=== PATIENT | male | born 1985 | race African-American/Black ===

== ENCOUNTER 2019-10-24 10:00 | Emergency (ER) | payer MEDICARE ==
[~2019-10-24] VITALS: Ht 182.9 cm; Wt 75.7 kg
[2019-10-24 10:07] VITALS: BP 133/45
== END 2019-10-24 12:21 | disposition left against medical advice (07) ==
LOC: ER 10:00
DX: R36.9 Urethral discharge, unspecified (principal); Z53.21 Procedure and treatment not carried out due to patient leaving prior to being seen by health care provider